=== PATIENT | female | born 1990 | race Caucasian/White ===

== ENCOUNTER 2018-10-19 23:07 | Emergency (ER) | payer MEDICAID ==
[~2018-10-19] VITALS: Ht 170.2 cm; Wt 78.0 kg
[2018-10-20] MEDS ORDERED: ACETAMINOPHEN 500MG TABLET PO ONE (01:30)
[2018-10-20 02:07] LABS: CHLORIDE 105 mEq/L (98-107)
[2018-10-20 02:13] LABS: BASOPHILS % 0.4 % (0.0-2.0); EOSINOPHILS % 1.3 % (0.0-5.0); HEMATOCRIT. 42.2 % (36.0-48.0); HEMOGLOBIN. 14.4 g/dL (12.0-16.0); LYMPHOCYTES % 21.3 % (20.0-50.0); MEAN CORPUSCULAR VOLUME 90.8 fL (81.0-99.0); MEAN PLATELET VOLUME 9.9 fl (7.4-10.4); MONOCYTES % 8.6 % (2.0-8.0); NEUTROPHILS % 68.4 % (40.0-76.0); PLATELET 156 x1000/uL (130-400); RED BLOOD CELL COUNT 4.65 mill/uL (4.2-5.4); RED CELL DISTRIBUTION WIDTH 12.7 % (11.6-14.6)
[2018-10-20 02:14] LABS: CLARITY URINE CLEAR (CLEAR); COLOR URINE YELLOW (YELLOW); KETONES URINE NEGATIVE (NEGATIVE); LEUKOCYTE ESTERASE URINE NEGATIVE (NEGATIVE); NITRITE URINE NEGATIVE (NEGATIVE); OCCULT BLOOD URINE 3+ (NEGATIVE); PROTEIN URINE NEGATIVE (NEGATIVE); SPECIFIC GRAVITY URINE 1.018 (1.005-1.030)
[2018-10-20 02:31] LABS: B-HCG QUANTITATIVE 2783 mIU/mL (<3)
[2018-10-20 03:00] VITALS: BP 118/68
== END 2018-10-20 05:17 | disposition home or self-care (01) ==
LOC: ER 23:07
DX: O20.9 Hemorrhage in early pregnancy, unspecified (principal); Z3A.01 Less than 8 weeks gestation of pregnancy
CPT/HCPCS: 36415; 76801; 81003; 84702; 86850; 86900; 99284

== ENCOUNTER 2018-11-25 15:36 | Emergency (ER) | payer MEDICAID ==
[~2018-11-25] VITALS: Ht 162.6 cm; Wt 71.0 kg
[2018-11-25 19:07] LABS: BASOPHILS % 0.4 % (0.0-2.0); EOSINOPHILS % 1.3 % (0.0-5.0); HEMATOCRIT. 38.3 % (36.0-48.0); LYMPHOCYTES % 21.2 % (20.0-50.0); MEAN CORPUSCULAR HEMOGLOBIN 30.8 pg (28.0-32.0); MEAN CORPUSCULAR VOLUME 91.3 fL (81.0-99.0); MEAN PLATELET VOLUME 9.9 fl (7.4-10.4); NEUTROPHILS % 70.1 % (40.0-76.0); PLATELET 169 x1000/uL (130-400); RED CELL DISTRIBUTION WIDTH 12.3 % (11.6-14.6)
[2018-11-25 19:09] LABS: CHLORIDE 105 mEq/L (98-107)
[2018-11-25 19:21] LABS: B-HCG QUANTITATIVE < 1 mIU/mL (<3)
[2018-11-25 19:36] LABS: CLARITY URINE CLEAR (CLEAR); COLOR URINE YELLOW (YELLOW); KETONES URINE TRACE (NEGATIVE); LEUKOCYTE ESTERASE URINE 1+ (NEGATIVE); NITRITE URINE NEGATIVE (NEGATIVE); OCCULT BLOOD URINE 3+ (NEGATIVE); PROTEIN URINE 1+ (NEGATIVE); SPECIFIC GRAVITY URINE 1.033 (1.005-1.030); UROBILINOGEN URINE 0.2 E.U./dL (0.2-1.0)
[2018-11-25 20:56] VITALS: BP 121/71
== END 2018-11-25 21:01 | disposition home or self-care (01) ==
LOC: ER 15:36
DX: O03.9 Complete or unspecified spontaneous abortion without complication (principal); O23.41 Unspecified infection of urinary tract in pregnancy, first trimester; Z3A.11 11 weeks gestation of pregnancy
CPT/HCPCS: 36415; 76830; 76856; 81003; 81025; 84702; 86850; 86900; 99284

== ENCOUNTER 2020-09-24 20:16 | Emergency (ER) | payer MEDICAID ==
[~2020-09-24] VITALS: Ht 170.2 cm; Wt 89.0 kg
[2020-09-24 20:25] VITALS: BP 105/68
[2020-09-24] MEDS ORDERED: GABAPENTIN 300MG CAPSULE PO ONE (21:45)
== END 2020-09-24 23:50 | disposition left against medical advice (07) ==
LOC: ER 21:23
DX: G90.09 Other idiopathic peripheral autonomic neuropathy (principal)
CPT/HCPCS: 99283